=== PATIENT | male | born 1960 | race Caucasian/White ===

== ENCOUNTER → 2020-09-17 13:38 | Outpatient (CLI) | payer OTHER, SELFPAY ==
[2020-09-17] MEDS: COVID-19 VACC #1, MRNA(MOD) 100 MCG/0.5 ML VIAL IM (13:46)
== END ==
PROVIDERS: Visit Provider Internal Medicine
DX: Z23 Encounter for immunization (principal)
CPT/HCPCS: 0011A; 91301

== ENCOUNTER → 2020-10-15 13:34 | Outpatient (CLI) | payer OTHER, SELFPAY ==
[2020-10-15] MEDS: COVID-19 VACC #2, MRNA(MOD) 100 MCG/0.5 ML VIAL IM (13:38)
== END ==
PROVIDERS: Visit Provider Internal Medicine
DX: Z23 Encounter for immunization (principal)
CPT/HCPCS: 0012A; 91301

== ENCOUNTER → 2021-02-09 13:58 | Outpatient (CLI) | payer OTHER, SELFPAY ==
[2021-02-09 17:19] LABS: COVID19 -Nasal RAPID POSITIVE (Negative)
== END ==
PROVIDERS: Visit Provider Physician Assistant
DX: U07.1 COVID-19 (principal)
CPT/HCPCS: 87635

== ENCOUNTER → 2023-08-14 17:04 | Outpatient (CLI) | payer OTHER, SELFPAY ==
[2023-08-14 19:44] LABS: Influenza A - CEPHEID Flu A NEGATIVE (NEGATIVE); Influenza B - CEPHEID Flu B NEGATIVE (NEGATIVE); Respiratory Syncytial Virus Negative (Negative)
[2023-08-14 20:02] LABS: COVID-19 CEPHEID 4-PLEX PCR Negative (Negative)
== END ==
PROVIDERS: Visit Provider Nurse Practitioner Family
DX: R50.9 Fever, unspecified (principal)
CPT/HCPCS: 0241U

== ENCOUNTER 2023-08-21 06:14 | Emergency (ER) | payer OTHER, SELFPAY ==
[2023-08-21 06:34] VITALS: PULSE 71; O2SAT 95
[2023-08-21 06:37] VITALS: BP 181/86; PULSE 70; RESP 18; TEMP 36.4; O2SAT 95
--- NOTE | 2023-08-21 06:39 | DI.RAD.S_ITS ---
PROCEDURE: XR CHEST 1V INDICATIONS: BODY ACHES, INSOMNIA TECHNIQUE: One view of the chest was acquired. COMPARISON: None. FINDINGS: Surgical changes and devices: None. Lungs and pleura: Lungs are clear. No pleural effusions or pneumothorax. Mediastinum: Mediastinal contours appear normal. Heart size is normal. Bones and chest wall: No suspicious bony lesions. Overlying soft tissues appear unremarkable. IMPRESSION: No acute cardiopulmonary abnormality is seen. This report is concordant with the overnight preliminary interpretation. Dictated by: Rigo Quiñones M.D. on 08/21/2023 at 8:01 Approved by: Rigo Quiñones M.D. on 08/21/2023 at 8:02
[2023-08-21 06:54] LABS: Add Manual Diff / Slide Review NO; Basophils Absolute Auto 0 /uL (0-100); Basophils Percent Auto 0.3 % (0-2); Eosinophils Absolute Auto 300 /uL (0-450); Eosinophils Percent Auto 4.8 % (2-4); Hematocrit 37.9 % (41-53); Hemoglobin 13.3 g/dL (13.5-17.5); Lymphocytes Absolute Auto 1600 /uL (1100-4500); Lymphocytes Percent Auto 23.2 % (25-40); Mean Corpuscular HGB Conc 35.1 % (30-36); Mean Corpuscular Hemoglobin 29.6 PG (26-34); Mean Corpuscular Volume 84.4 fL (80-100); Monocytes Absolute Auto 700 /uL (0-900); Neutrophils Absolute Auto 4200 /uL (1500-7000); Neutrophils Percent Auto 61.7 % (50-75); Platelet Count 309 X10^3/uL (150-400); Red Blood Cell Count 4.49 X10^6/uL (4.5-5.9); Red Cell Distribution Width 13.7 % (11.6-14.8); White Blood Cell Count 6.8 X10^3/uL (4.5-11.0)
[2023-08-21] MEDS: SODIUM CHLORIDE 0.9% 1,000 ML 1000 ML IV (06:56)
[2023-08-21 07:00] VITALS: BP 142/67; PULSE 63; O2SAT 94
--- NOTE | 2023-08-21 07:06 | PC.NURSE ---
Pt main complaint is insomnia. Denies any other psych issues or symptoms.
--- NOTE | 2023-08-21 07:07 | ED_ITS ---
HPI - Anxiety General Chief Complaint: Anxiety Stated Complaint: unable to sleep, body aches Time Seen by Provider: 08/21/23 06:25 Source: patient Mode of arrival: Ambulatory History of Present Illness HPI narrative: 63-year-old insulin-dependent diabetic who is here for evaluation of several nights of not being able to sleep because of generalized body aches. Has not had a fever during this times but he says that he had a fever about a week ago. He denies any coughing, sore throat, headache, skin rashes, abdominal pain, urinary symptoms, change in bowel habits. No recent travel. He did take some Advil last night which he thinks may have improved his symptoms somewhat. During the day he seems to be relatively asymptomatic. Related Data Allergies Allergy/AdvReac Type Severity Reaction Status Date / Time No Known Drug Allergies Allergy Unverified 08/14/23 17:02 Review of Systems Review of Systems ROS Unobtainable: All systems reviewed & are unremarkable except as noted in HPI and below Patient History Social History Smoking Status: Never smoker Smoking Status: Never smoker alcohol intake frequency: other Substance Use Type: does not use Exam Initial Vital Signs Initial Vital Signs: Vital Signs Temperature 97.6 F 08/21/23 06:37 Pulse Rate 70 08/21/23 06:37 Respiratory Rate 18 08/21/23 06:37 Blood Pressure 181/86 H 08/21/23 06:37 Pulse Oximetry 95 08/21/23 06:37 Oxygen Delivery Method Room Air 08/21/23 06:37 Const General: cooperative, comfortable and No ill appearing [facility] Head: normal to inspection and normocephalic Resp Effort & Inspection: normal respiratory effort Auscultation: clear to auscultation bilaterally Cardio Rate: regular rate Rhythm: regular rhythm GI Inspection: normal to inspection and non-distended Skin General: no rashes or lesions noted Neuro General: patient alert, patient awake and moves all extremities Extrem General: capillary refill normal Course Orders Ordered: ED Orders 08/21/23 06:38 UA Complete [Urinalysis and Microscopic] Stat 08/21/23 06:39 Chest [XR chest 1V] Stat EKG-12 Lead Stat 08/21/23 06:45 CBC Auto Diff [Complete Blood Count AUTO DIFF] Stat CMP [Comprehensive Metabolic Panel] Stat MAG [Magnesium] Stat 08/21/23 06:49 Respiratory Panel (Film Array) Stat Discontinued Medications Sodium Chloride (Normal Saline 0.9%) 1,000 mls @ 1,000 mls/hr IV BOLUS ONE Stop: 08/21/23 07:37 Last Admin: 08/21/23 06:56 Dose: 1,000 mls/hr Documented By: SB Vital Signs Vital signs: Vital Signs - 8 hr 08/21/23 06:37 Temperature 97.6 F Pulse Rate 70 Respiratory Rate 18 Blood Pressure 181/86 H Pulse Oximetry 95 Oxygen Delivery Method Room Air MDM - Anxiety Lab Data Attestation: I reviewed the patient's lab results. 08/21/23 06:45 08/21/23 06:45 Labs: Lab Results 08/21/23 08/21/23 Range/Units 06:45 06:49 WBC 6.8 (4.5-11.0) X10^3/uL RBC 4.49 L (4.5-5.9) X10^6/uL Hgb 13.3 L (13.5-17.5) g/dL Hct 37.9 L (41-53) % MCV 84.4 (80-100) fL MCH 29.6 (26-34) PG MCHC 35.1 (30-36) % RDW 13.7 (11.6-14.8) % Plt Count 309 (150-400) X10^3/uL Neut % (Auto) 61.7 (50-75) % Lymph % (Auto) 23.2 L (25-40) % [place] % (Auto) 10.0 (3-14) % Eos % (Auto) 4.8 H (2-4) % Baso % (Auto) 0.3 (0-2) % Neut # (Auto) 4200 (4036-4236) /uL Lymph # (Auto) 1600 (0879-3773) /uL [place] # (Auto) 700 (0-900) /uL Eos # (Auto) 300 (0-450) /uL Baso # (Auto) 0 (0-100) /uL Sodium 139 (137-145) mmol/L Potassium 4.3 (3.4-5.1) mmol/L Chloride 109 H (98-107) mmol/L Carbon Dioxide 23 (22-32) mmol/L BUN 15 (9-20) mg/dL Creatinine 1.02 (0.66-1.25) mg/dL Estimated GFR > 60 (>60) mL/min BUN/Creatinine Ratio 14.7 (6-22) Glucose 183 H (80-110) mg/dL Calcium 9.5 (8.4-10.2) mg/dL Magnesium 1.9 (1.6-2.3) mg/dL Total Bilirubin 0.5 (0.2-1.3) mg/dL AST 52 (17-59) IU/L ALT 94 H (<50) IU/L Alkaline Phosphatase 81 (38-126) U/L Total Protein 8.0 (6.3-8.2) g/dL Albumin 4.1 (3.5-5.0) g/dL Globulin 3.9 (1.7-4.1) g/dL Albumin/Globulin Ratio 1.1 (1.0-2.8) Chlamy pneumoniae PCR Not detected (Not Detect) Adenovirus (PCR) Not detected (Not Detect) B.parapertussis DNA PCR Not detected (Not Detecte) Coronavirus OC43 (PCR) Not detected (Not Detect) Coronavirus HKU1 (PCR) Not detected (Not Detect) Coronavirus 229E (PCR) Not detected (Not Detect) SARS-CoV-2 (PCR) Not detected (Not Detecte) Coronavirus NL63 (PCR) Not detected (Not Detect) Human Metapneumovir PCR Not detected (Not Detect) Influenza Type A (PCR) Not detected (Not Detect) Influenza Type B (PCR) Not detected (Not Detect) M. pneumoniae (PCR) Not detected (Not Detect) Parainfluenza 1 (PCR) Not detected (Not Detect) Parainfluenza 2 (PCR) Not detected (Not Detect) Parainfluenza 3 (PCR) Not detected (Not Detect) Parainfluenza 4 (PCR) Not detected (Not Detect) RSV (PCR) Not detected (Not Detect) Entero/Rhino (PCR) Not detected (Not Detect) Imaging Data Chest x-ray: Radiologist's Impression: PROCEDURE: XR CHEST 1V INDICATIONS: BODY ACHES, INSOMNIA TECHNIQUE: One view of the chest was acquired. COMPARISON: None. FINDINGS: Surgical changes and devices: None. Lungs and pleura: Lungs are clear. No pleural effusions or pneumothorax. Mediastinum: Mediastinal contours appear normal. Heart size is normal. Bones and chest wall: No suspicious bony lesions. Overlying soft tissues appear unremarkable. IMPRESSION: No acute cardiopulmonary abnormality is seen. ECG Data Interpretation: Sinus bradycardia Ventricular rate of 54 First-degree AV block [place] interval 240 milliseconds Normal axis No ST T wave changes MDM Narrative Medical decision making narrative: Patient is hyperglycemic but not in DKA. The rest of his labs are unremarkable. Chest x-ray is unremarkable. Respiratory panel is negative. He has no other specific source of an infection noted. No urinary symptoms. No abdominal pain. No indication for antibiotics. No indication for admission to the hospital. Patient understands lack of a definitive diagnosis. Recommended Tylenol and ibuprofen in to increase his fluid intake. He was given return precautions. He expressed understanding and agreement. Discharge Plan Departure Patient Disposition: Home Clinical Impression: Malaise Instructions: DI for Fatigue Activity Restrictions/Additional Instructions: Continue to take all of your medications as directed. You can take Tylenol and or ibuprofen to try to help with the body aches. Try to take this medication about 1 hour prior to going to sleep at night. Contact your primary doctor for a follow-up. Return to the emergency department for new symptoms. Referrals: Anabella Nelson MD [Primary Care Provider] - Stand Alone Forms: Patient Portal/API
[2023-08-21 07:15] LABS: Alanine Aminotransferase 94 IU/L (<50); Albumin 4.1 g/dL (3.5-5.0); Albumin Globulin Ratio 1.1 (1.0-2.8); Alkaline Phosphatase 81 U/L (38-126); Aspartate Aminotransferase 52 IU/L (17-59); BUN Creatinine Ratio 14.7 (6-22); Bilirubin Total 0.5 mg/dL (0.2-1.3); Blood Urea Nitrogen 15 mg/dL (9-20); Calcium 9.5 mg/dL (8.4-10.2); Carbon Dioxide 23 mmol/L (22-32); Chloride 109 mmol/L (98-107); Estimated Glomerular Filt Rate > 60 mL/min (>60); Globulin 3.9 g/dL (1.7-4.1); Glucose 183 mg/dL (80-110); HEMOLYSIS < 15 (0-50); Magnesium 1.9 mg/dL (1.6-2.3); Potassium 4.3 mmol/L (3.4-5.1); Sodium 139 mmol/L (137-145)
[2023-08-21 07:30] VITALS: BP 161/77; PULSE 66; O2SAT 94
[2023-08-21 07:42] LABS: Adenovirus Not Detected (Not Detect); B. parapertussis Not Detected (Not Detecte); Bordetella pertussis Not Detected (Not Detect); Chlamydophila pneumoniae Not Detected (Not Detect); Coronavirus 229E Not Detected (Not Detect); Coronavirus HKU1 Not Detected (Not Detect); Coronavirus NL 63 Not Detected (Not Detect); Coronavirus OC43 Not Detected (Not Detect); Human Metapneumovirus Not Detected (Not Detect); Human Rhinovirus/Enterovirus Not Detected (Not Detect); Influenza A Not Detected (Not Detect); Influenza B Not Detected (Not Detect); Mycoplasma pneumoniae Not Detected (Not Detect); Parainfluenza Virus 1 Not Detected (Not Detect); Parainfluenza Virus 2 Not Detected (Not Detect); Parainfluenza Virus 3 Not Detected (Not Detect); Parainfluenza Virus 4 Not Detected (Not Detect); Respiratory Syncytial Virus Not Detected (Not Detect); SARS- CoV-2 Not Detected (Not Detecte)
[2023-08-21 08:00] VITALS: BP 176/82; PULSE 67; O2SAT 95
== END 2023-08-21 08:22 | disposition home or self-care (01) ==
PROVIDERS: Emergency Medicine; Emergency Provider Emergency Medicine
DX: R53.81 Other malaise (principal); G47.00 Insomnia, unspecified; R07.9 Chest pain, unspecified; Z20.822 Contact with and (suspected) exposure to COVID-19
CPT/HCPCS: 36415; 71045; 80053; 83735; 85025; 87633; 93005; 93010; 96360; 99284